=== PATIENT | female | born 1985 | race Caucasian/White ===

== ENCOUNTER 2023-05-31 08:35 | Outpatient (OUT) | payer OTHER, SELFPAY ==
[2023-05-31 09:08] LABS: Estimated Average Glucose 105 mg/dL; Glycohemoglobin A1C 5.3 % (4.5-6.2)
[2023-05-31 09:10] LABS: Basophils Percent Auto 0.6 % (0.2-2.0); Eosinophils Absolute Auto 0.1 10^3/uL (0.0-0.7); Eosinophils Percent Auto 1.1 % (0.9-7.0); Hematocrit 40.3 % (36.0-48.0); Immature Granulocytes Abs Auto 0.02 10^3/uL (0.00-0.03); Immature Granulocytes Pct Auto 0.3 % (0.0-0.5); Lymphocytes Absolute Auto 1.6 10^3/uL (1.2-3.8); Lymphocytes Percent Auto 22.8 % (20.5-60.0); Mean Corpuscular HGB Conc 32.3 g/dL (29.9-35.2); Mean Platelet Volume 10.1 fL (9.5-13.5); Monocytes Absolute Auto 0.5 10^3/uL (0.3-0.8); Monocytes Percent Auto 7.4 % (1.7-12.0); Neutrophils Absolute Auto 4.8 10^3/uL (1.4-6.5); Neutrophils Percent Auto 67.8 % (43.0-75.0); Platelet Count 318 10^3/uL (150-450); Red Blood Count 4.48 10^6/uL (4.20-5.40); Red Cell Distribution Width 12.5 % (11.0-15.0); White Blood Count 7.1 10^3/uL (4.0-11.0)
[2023-05-31 09:31] LABS: Alanine Aminotransferase 24 U/L (14-59); Albumin Level 3.6 g/dL (3.4-5.0); Alkaline Phosphatase 63 U/L (46-116); Anion Gap 13.8; Aspartate Amino Transferase 15 U/L (15-37); BUN Creatinine Ratio 15.9; Bilirubin Total 0.5 mg/dL (0.2-1.0); Calcium 8.6 mg/dL (8.5-10.1); Carbon Dioxide 28.6 mmol/L (21.0-32.0); Chloride 104 mmol/L (98-107); Chol HDL Ratio 3.8; Cholesterol 192 mg/dL (<=200); Estimated GFR (African America >60 (>=60); Estimated GFR (Non-African Ame >60 (>=60); Globulin 3.7 g/dL; Glucose 100 mg/dL (74-106); HDL Cholesterol 50 mg/dL (40-60); LDL Cholesterol Calculated 126.6 mg/dL; Potassium 3.4 mmol/L (3.5-5.1); Sodium 143 mmol/L (136-145); Total Protein 7.3 g/dL (6.4-8.2); Triglycerides 77 mg/dL (<=150); VLDL CHOLESTEROL 15.4 mg/dL
== END 2023-05-31 08:36 | disposition home or self-care (01) ==
LOC: LAB 08:39
PROVIDERS: PCP Nurse Practitioner Family; Visit Provider Family Medicine
DX: Z00.00 Encounter for general adult medical examination without abnormal findings (principal); E78.5 Hyperlipidemia, unspecified; R73.09 Other abnormal glucose; D64.9 Anemia, unspecified
CPT/HCPCS: 36415; 80053; 80061; 83036; 83540; 85025

== ENCOUNTER 2023-08-15 17:22 | Outpatient (OUT) | payer OTHER, SELFPAY ==
--- OUTSIDE RECORDS SUMMARY | 2023-08-15 17:26 | XMS_ITS | CCD ---
Author Name Unknown Address [address] [facility] [address] [place] [address] Organization [facility] Care Team Providers Care Painter Spring Name Role Phone Linnette Ro Unavailable NEFTALI OREILLY Admitting Unavailable AFIA, NEFTALI Attending Unavailable AFIA, NEFTALI Consulting Unavailable OLIVA, RO Primary Care Unavailable GEGE ANDERSEN Consulting Unavailable OLIVA, RO Primary Care Unavailable OLIVA, RO Admitting Unavailable OLIVA, RO Attending Unavailable OLIVA, RO Consulting Unavailable OLIVA, RO Admitting Unavailable OLIVA, RO Attending Unavailable OLIVA, RO Consulting Unavailable OLIVA, RO Primary Care Unavailable Yin Em Unavailable RO BAPTISTE Primary Care Physician [phone] Hari CAMPBELL Attending Unavailable Hari CAMPBELL Referring Unavailable IAN, Hari Smith Attending Unavailable Hari CAMPBELL Admitting Unavailable Hari CAMPBELL Attending Unavailable Hari CAMPBELL Referring Unavailable Medications Current Medications Medication Drug Class(es) Dates Sig (Normalized) Sig (Original) buPROPion hydrochloride 75 mg oral tablet (5 sources) Aminoketone Start: 12-19-2020 take 1 mg by mouth once daily buPROPion 75 mg Tab mg tab(s), Oral, Daily, Refills(s) 0 Start Date: 12/19/20 Status: Ordered buPROPion HCl Ac tive ciprofloxacin 500 mg oral tablet (1 source) Quinolone Antimicrobial Start: 04-25-2023 Cipro 500 mg Tab See Instructions, Take 1 tablet the day before the procedure and 1 tablet after the procedure., # 2 tab(s), Refills(s) 0, Pharmacy: [id number] #[id number], 167, cm, 03/25/23 8:55:00 EDT, Height/Length Dosing, 59, kg, 03/25/23 8:55:00 EDT, Weight Dosing Start Date: 04/25/23 Status: Ordered erythromycin 0.005 mg/mg ophthalmic ointment (1 source) Macrolide, Macrolide Antimicrobial Start: 01-31-2023 Multi Vitamin+ (2 sources) Start: 03-25-2023 Multi Vitamin+ Refill(s) 0 Start Date: 03/25/23 Status: Ordered nitrofurantoin, macrocrystals 25 mg / nitrofurantoin, monohydrate 75 mg oral capsule (2 sources) Nitrofuran Antibacterial Start: 12-08-2021 take 1 capsule by mouth every twelve hours Macrobid 100 MG 1 cap(s) Orally 2 times a day for 5 day(s) November, Active phenazopyridine hydrochloride 200 mg oral tablet (2 sources) Start: 12-08-2021 take 1 tablet by mouth every eight hours Pyridium 200 MG 1 tablet after meals Orally Three times a day for 2 day(s) November, Active Completed/Discontinued Medications Medication Drug Class(es) Dates Sig (Normalized) Sig (Original) amoxicillin 875 mg oral tablet (2 sources) Penicillin-class Antibacterial Start: 12-29-2020 take 1 tablet by mouth every eight hours Amoxicillin 875 MG 1 tablet Orally every 8 hrs for 10 day(s) Dec, Not-Taking chlorhexidine gluconate 1.2 mg/ml mouthwash (3 sources) Start: 12-29-2020 Start: 12-29-2020 take 10 mL by mouth twice daily Peridex 0.12 % gargle 10 ml Mouth/Throat twice daily Dec, Not-Taking Problems Problem Classification Problem Date Documented Da te Episodic/Chronic Anxiety disorders (3 sources) Anxiety disorder, unspecified; Translations: [Anxiety] Onset: 03-24-2022 12-19-2020 Chronic Cardiac dysrhythmias (7 sources) Tachycardia, unspecified; Translations: [Palpitations] Onset: 03-20-2022 Episodic Deficiency and other anemia (1 source) Anemia, unspecified; Translations: [ANEMIA UNSPECIFIED] Onset: 04-06-2022 Episodic Diabetes mellitus without complication (1 source) Other abnormal glucose; Translations: [OTHER ABNORMAL GLUCOSE] Onset: 04-06-2022 Episodic Genitourinary symptoms and ill-defined conditions (3 sources) Urge incontinence; Translations: [Urge incontinence of urine] Onset: 03-25-2023 Chronic Genitourinary symptoms and ill-defined conditions (5 sources) Dysuria; Translations: [Hematuria, unspecified] Onset: 12-08-2021 Resolved: 12-08-2021 Episodic Inflammation; infection of eye (except that caused by tuberculosis or sexually transmitteddisease) (1 source) Hordeolum externum left upper eyelid Episodic Mood disorders (1 source) Major depressive disorder, single episode, unspecified; Translations: [WALTER DEPRESS D/O SINGLE EPIS UNS] Onset: 03-24-2022 Chronic Other aftercare (1 source) Other roasterman (current) drug therapy; Translations: [OTH GLUELINE WORKER CURRENT DRUG THERAPY] Onset: 03-24-2022 Episodic Other ear and sense organ disorders (3 sources) Otitis externa; Translations: [Other otitis externa, bilateral] Chronic Unclassified (2 sources) Asymptomatic microscopic hematuria 03-25-2023 Urinary tract infections (8 sources) Urinary tract infection, site not specified; Translations: [Postinfective urethral stricture of female] Onset: 12-08-2021 Resolved: 12-08-2021 Episodic Results Test Name Value Interpretation Reference Range Facility Coding Queryon 05-27-2023 Coding Query - From: Tete Godfrey To: IAN WILLAMS, Hari Smith; Sent: 05/25/2023 15:39:36 EST ! Subject: Coding Query (Template) CODING COMMUNICATION: ____ Final diagnosis missing please document on Discharge Summary _X__ Procedure information missing: Please document the dilation part of procedure, if done. Thanks ____ Please clarify type of organism associated with infection ____ Please complete ROS or HPI for ER documentation Please feel free to contact the coding department with any questions. Thank you! Dr. Campbell said he did not do a UD on her, it was not needed.pw/LG From: Mikayla Linares To: Tete Godfrey; Sent: 05/27/2023 08:24:25 EST Subject: RE: Coding Query (Template) Caller Name: VITOR TYLER; Caller Number: Mo , Elizabeth [facility] Consent for Procedure/Surger yon 05-24-2023 Consent for Procedure/Surgery [id number] .00TIFF [facility] Consent for Treatmenton 110 Consent for Treatment [id number] .00TIFF [facility] IntraOperative Documentson 1 07-24-2022 IntraOperative Documents [id number] .00TIFF [facility] Main OR Intraoperative Recor don 05-24-2023 Main OR Intraoperative Record IntraOp Document Type FTURO Summary Primary Physician: Hari CAMPBELL MD Finalized Date/Time: 05/24/23 10:49:55 Pt. Name: VITOR TYLER /Sex: 1985 Female Med Rec #: [id number] Physician: Hari CAMPBELL MD Financial #: [id number] Pt. Type: O Room/Bed: / Admit/Disch: 05/24/23 09:38:18 - Institution: Case Times FTURO Entry 1 Patient Times In Room 05/24/23 10:36:00 Out Room 05/24/23 10:49:00 Procedure Times Start 05/24/23 10:42:00 Stop 05/24/23 10:46:00 Anesthesia Times Last Modified By: Olga Han RN 05/24/23 10:49:27 Case Attendance FTURO Entry 1 Entry 2 Entry 3 Case Attendee IAN WILLAMS, Hari Galicia CST, Olga Leo RN Role Performed Surgeon - Primary Scrub - Primary Desktop Publishing Operator - Primary Time In 05/24/23 10:36:00 05/24/23 10:36:00 05/24/23 10:36:00 Time Out 05/24/23 10:49:00 05/24/23 10:49:00 05/24/23 10:49:00 Procedure CYSTOSCOPY LOCAL WITH CYSTOSCOPY LOCAL WITH CYSTOSCOPY LOCAL WITH URETHRAL DILATION(.) URETHRAL DILATION(.) URETHRAL DILATION(.) Comments Last Modified By: Olga Han RN, RN, Olga Ross RN 05/24/23 10:49:29 05/24/23 10:49:29 05/24/23 10:49:29 Surgical Procedures FTURO Entry 1 Procedure Description Procedure CYSTOSCOPY LOCAL WITH Modifiers . URETHRAL DILATION Surgeon Description CYSTOSCOPY LOCAL WITH URETHRAL DILATION Primary Procedure Yes Primary Surgeon Hari CAMPBELL MD Start 05/24/23 10:42:00 Stop 05/24/23 10:46:00 Anesthesia Type Local Surgical Service Urology Wound Class 2 - Clean-Contaminated Last Modified By: Olga Hna RN 05/24/23 10:46:34 General Case Data FTURO Pre-Care Text: Classifies surgical wound, implements aseptic technique, initiates traffic control Entry 1 Case Information OR URO 1 FT Case Level None Wound Class 2 - Clean-Contaminated Specialty Urology Preop Diagnosis URETHERAL STRICTURE, Postop Same As Preop Yes HEMATURIA, RECURRENT UTI'S Postop Diagnosis URETHERAL STRICTURE, Outcomes Met? Yes HEMATURIA, RECURRENT UTI'S Last Modified By: Olga Han RN 05/24/23 10:37:53 Post-Care Text: The patient is free from signs and symptoms of infection EU IntraOp - FTURO Pre-Care Text: Implements protective measures prior to operative or invasive procedure, confirms identity before the operative or invasive procedure, verifies operative procedure, surgical site, and laterality Entry 1 EU Perioperative Protocols Procedure(s) CYSTOSCOPY LOCAL WITH Patient Identity Birthday, ID Band URETHRAL DILATION(.) Verified (select at Check, Patient least 2): Participation Consents / H and P HandP, Surgery/Procedure Operative Site N/A Verified Consent Marking Verified Surgical Site Yes Laterality Verified Yes Verified Procedure Verified Yes Correct Patient Yes Position Verified Availability Equipment, Medication Time Out Hari CAMPBELL MD, Verified (If Participants Olga Galicia CST Applicable) Emely Small RN, Kimberly Y Time Out Complete 05/24/23 10:38:00 Allergies Reviewed? Yes Allergies Reviewed Self/Patient With Body Position Frog Legged Prep Area PERINEUM Prep Agents Betadine Solution Skin. Condition Dry, Warm, Unable to Description UNABLE TO VISUALIZE DUE Visualize TO PATIENT PARTIALLY CLOTHED Additional None Specimens Collected Vitals - EU Blood Pressure 135/88 Pulse 107 bpm Respirations 18 br/min SPO2 99 % EBL 0 IandO - EU Total Intake 0 mL Total Output 0 mL Outcomes Met? Yes Last Modified By: Olga Han RN 05/24/23 10:40:09 Post-Care Text: The patient is free from signs and symptoms of injury caused by extraneous objects Sign Out FTURO Entry 1 Before Patient Leaves OR Nurse verbally Yes Nurse verbally Yes confirms with the confirms with the team the name of team that the procedure(s) instrument, sponge, recorded and needle counts are correct (or N/A) Nurse verbally n/a Nurse verbally Yes confirms with the confirms with the team how the team whether there specimen is labeled are any equipment (including patient problems to be name), if applicable addressed Sign Out Complete 05/24/23 10:46:00 Last Modified By: Olga Han RN 05/24/23 10:46:33 Case Comments Finalized By: Olga Han RN Document Signatures Signed By: Olga Han RN 05/24/23 10:49 Olga Han RN 05/24/23 10:49 Normal [facility] Main OR Preoperative Recordo n 05-24-2023 Main OR Preoperative Record Holding Area Document Type FTURO Summary Primary Physician: Hari CAMPBELL MD Finalized Date/Time: 05/24/23 10:36:18 Pt. Name: VITOR TYLER/Sex: 1985 Female Med Rec #: [id number] Physician: Hari CAMPBELL MD Financial #: [id number] Pt. Type: O Room/Bed: / Admit/Disch: 05/24/23 09:38:18 - Institution: Case Times Holding FTURO Pre-Care Text: Verifies consent for planned procedure, identifies individual values and wishes concerning care, includes family members in perioperative teaching Secures patient's records' belongings, and valuables, maintains patient's dignity and privacy, and maintains patient confidentiality Entry 1 In Holding 05/24/23 09:49:00 Outcomes Met? Yes Last Modified By: Kenia Post LPN 05/24/23 09:49:55 Post-Care Text: The patient participates in decisions affecting his or her perioperative plan of care The patient's right to privacy is maintained Surgery Checklist FTURO Entry 1 Patient Birthday, ID Band Procedure History and Physical, Identification: Check, Patient Verification: Surgical Consent, With Participation Patient NPO after Midnight: n/a Date/Time: 05/24/23 09:50:00 Personal Items: Contact Lenses, Jewelry Personal Items contacts, wedding ring Comment: Limitations: up ad jaja Complaints of Pain: No Skin Integrity Intact, [place], Warm, & Dry Vitals - EU Blood Pressure 135/88 Pulse 107 bpm Respirations 18 br/min SPO2 99 % RN Reviewed Yes Last Modified By: Olga Han RN 05/24/23 10:36:17 General Comments: Temp 36.8 Finalized By: Olga Han RN Document Signatures Signed By: Kenia Post LPN 05/24/23 09:51 Olga Han RN 05/24/23 10:36 Normal [facility] Operative Reporton 3 Operative Report Patient: VITOR TYLER Age: 37 years Sex: Female : 1985 Associated Diagnoses: None Author: Hari CAMPBELL MD Procedure Operative Information Details: Date/ Time: 05/24/2023 10:50:00. Pre-Op Dx: Urgency Incontinence - N39.41, Urgency - R39.15, Hx of UTI's - Z87.440, Incomplete Bladder Emptying - R39.14, Urethral Stricture - Other Post Infective Female - N35.12. Post-Op Dx: Same. Anesthesia Type: Local. Procedure: Local Cystoscopy with Urethral Dilation. Complications: None. Risks/Benefits/Inform ed Consent: Surgical risks, benefits, details of the procedure have been explained to the patient, Full informed consent has been obtained. Intraoperative Information Prepped: Patient is brought back to the endoscopy suite, Patient is placed in modified dorso/lithotomy position, Patient prepped in the usual fashion with Betadine solution, 2% Xylocaine Jelly is placed per Urethra, After waiting several minutes the Cystoscope is introduced. The Urethra is: Tight. The Bladder is: Normal, No bladder tumors, stones or mucosal lesions. No AMIRAH, prolapse or A. V.. The ureteral orifices: Show efflux of clear urine. Devices Implanted: None. Removal: Cystoscope is removed, The patient tolerated it well. Postoperative Information Discharge: Patient is discharged home with antibiotic coverage, Follow up arranged. She will start timed urinations every 3 hours while awake. Follow-up will be in 8 months. 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 Discharge Vitals Temperature (Temporal Artery) 36.3 ?C Heart Rate (Peripheral) 84 Blood Pressure 122/78 Height 167 cm Height 66 in Weight 59 kg Weight 129.8 lb BMI 21.16 What to do next You Need to Schedule the Following Appointments Follow Up with Hari CAMPBELL MD, URL When: Where: [address] [place] [address]- Medications What How Much When Instructions Unchanged buPROPion (buPROPion 75 mg Tab) Every day Contact prescribing physician if questions or concerns Unchanged multivitamin (Multi Vitamin+) Contact prescribing physician if questions or concerns Test Results Urnls Dip Stick Auto w/o Microscopy POC 53407 (03/25/2023) Bilirubin Urine Dipstick - Negative Blood Urine Dipstick - 2+ Moderate Glucose Urine Dipstick - Negative Ketones Urine Dipstick - Negative Leukocytes Urine Dipstick - Negative Nitrite Urine Dipstick - Negative Protein Urine Dipstick - Negative Specific [place] Urine Dipstick - >=1.030 Urine Appearance Urine Dipstick - Clear Urine Color Urine Dipstick - Yellow Urobilinogen Urine Dipstick - Normal 0.2-1 EU/dl pH Urine Dipstick - 5.5 Allergies No Known Allergies Problems Ongoing - Any problem that you are currently receiving treatment for. 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 The urethra is the tube that drains urine from the bladder out of the body. In women, the urethra opens above the vaginal opening. In men, the urethra opens at the tip of the penis. Urethral dilation is usually done to treat narrowing of the urethra (urethral stricture), which can make it difficult to pass urine. Urethral dilation widens the urethra so that you can pass urine normally. Urethral dilation is done through the urethral opening. There are no incisions made during the procedure. Tell a health care provider about: ? Any allergies you have. ? All medicines you are taking, including vitamins, herbs, eye drops, creams, and qctn-mui-zlcwsge medicines. ? Any problems you or family members have had with anesthetic medicines. ? Any blood disorders you have. ? Any surgeries you have had. ? Any medical conditions you have. ? Whether you are or may be . What are the risks? Generally, this is a safe procedure. However, problems may occur, including: ? Bleeding. ? Infection. ? A return of urethral stricture, which requires repeating the dilation procedure. ? Damage to the urethra, which may require reconstructive surgery. ? Allergic reactions to medicines. What happens before the procedure? Medicines Ask your health care provider about: ? Changing or stopping your regular medicines. This is especially important if you are taking diabetes medicines or blood thinners. ? Taking medicines such as aspirin and ibuprofen. These medicines can thin your blood. Do not take these medicines unless your health care provider tells you to take them. ? Taking hpre-ail-ukfevhl medicines, vitamins, herbs, and supplements. General instructions ? Follow instructions from your health care provider about eating or drinking restrictions. ? Plan to have someone take you home from the hospital or clinic. ? If you will be going home right after the procedure, plan to have someone with you for 24 hours. ? Ask your health care provider what steps will be taken to help prevent infection. These may include: ? Washing skin with a germ-killing soap. ? Taking antibiotic medicine. What happens during the procedure? ? An IV may be inserted into one of your veins. ? You will be given one or more of the following medicines: ? A local anesthetic to numb your urethral opening. This will be applied as a gel that will also lubricate the urethral opening. ? A sedative to help you relax. ? A thin tube with a light and camera on the end (cystoscope) will be inserted into your urethra. ? Your urethra will be rinsed (irrigated) with a germ-free (sterile) water solution. ? Narrow parts of your urethra will be stretched ope (more content not included)... Normal [facility] Patient Educationon 03-25-20 Patient Education Urology Urethral Dilation Urethral dilation is a procedure to stretch open (dilate) the urethra. The urethra is the tube that drains urine from the bladder out of the body. In women, the urethra opens above the vaginal opening. In men, the urethra opens at the tip of the penis. Urethral dilation is usually done to treat narrowing of the urethra (urethral stricture), which can make it difficult to pass urine. Urethral dilation widens the urethra so that you can pass urine normally. Urethral dilation is done through the urethral opening. There are no incisions made during the procedure. Tell a health care provider about: ? Any allergies you have. ? All medicines you are taking, including vitamins, herbs, eye drops, creams, and pqod-lya-zrsmuqq medicines. ? Any problems you or family members have had with anesthetic medicines. ? Any blood disorders you have. ? Any surgeries you have had. ? Any medical conditions you have. ? Whether you are or may be . What are the risks? Generally, this is a safe procedure. However, problems may occur, including: ? Bleeding. ? Infection. ? A return of urethral stricture, which requires repeating the dilation procedure. ? Damage to the urethra, which may require reconstructive surgery. ? Allergic reactions to medicines. What happens before the procedure? Medicines Ask your health care provider about: ? Changing or stopping your regular medicines. This is especially important if you are taking diabetes medicines or blood thinners. ? Taking medicines such as aspirin and ibuprofen. These medicines can thin your blood. Do not take these medicines unless your health care provider tells you to take them. ? Taking lzgf-mwi-booybkq medicines, vitamins, herbs, and supplements. General instructions ? Follow instructions from your health care provider about eating or drinking restrictions. ? Plan to have someone take you home from the hospital or clinic. ? If you will be going home right after the procedure, plan to have someone with you for 24 hours. ? Ask your health care provider what steps will be taken to help prevent infection. These may include: ? Washing skin with a germ-killing soap. ? Taking antibiotic medicine. What happens during the procedure? ? An IV may be inserted into one of your veins. ? You will be given one or more of the following medicines: ? A local anesthetic to numb your urethral opening. This will be applied as a gel that will also lubricate the urethral opening. ? A sedative to help you relax. ? A thin tube with a light and camera on the end (cystoscope) will be inserted into your urethra. ? Your urethra will be rinsed (irrigated) with a germ-free (sterile) water solution. ? Narrow parts of your urethra will be stretched open using a dilator tool. Your surgeon will start with a very thin dilator, then use wider dilators as needed. ? A thin tube with an inflatable balloon on the tip may be inserted into your urethra. The balloon may be inflated to help stretch your urethra open. ? Your urethra will be irrigated. The procedure may vary among health care providers and hospitals. What can I expect after the procedure? ? After the procedure, it is common to have: ? Burning pain when urinating. ? Blood in your urine. ? A need to urinate frequently. ? You will be asked to urinate before you leave the hospital or clinic. ? Your urine flow should improve within a few days. Follow these instructions at home: Medicines ? Take sfep-fqj-mzzdfal and prescription medicines only as told by your health care provider. ? If you were prescribed an antibiotic medicine, take it as told by your health care provider. Do not stop taking the antibiotic even if you start to feel better. ? Ask your health care provider if the medicine prescribed to you: ? Requires you to avoid driving or using heavy machinery. ? Can cause constipation. You may need to take these actions to prevent or treat constipation: ? Take rntb-xdv-irdisgg or prescription medicines. ? Eat foods that are high in fiber, such as beans, whole grains, and fresh fruits and vegetables. ? Limit foods that are high in fat and processed sugars, such as fried or sweet foods. General instructions ? Do not drive for 24 hours if you were given a sedative during your procedure. ? If you were sent home with a small, lubricated tube (catheter) to help keep your urethra open, follow your health care provider's instructions about how and when to use it. ? Drink enough fluid to keep your urine pale yellow. ? Return to your normal activities as told by your health care provider. Ask your health care provider what activities are safe for you. ? Keep all follow-up visits as told by your health care provider. This is important. Contact a health care provider if: ? Your urine is cloudy and smells bad. ? You develop new bleeding when you urinate. ? You pa (more content not included)... Normal [facility] Urology Office/Clinic Noteon 03-25-2023 Urology Office/Clinic Note Chief Complaint discuss another cysto HPI Staff Pt is here today to discuss possible Cysto/UD. Last seen in our office 02/09/23 due to Recurrent UTI, urgency & Microscopic Hematuria. S/P Cysto/UD done 02/17/21. Renal US 02/14/21 CMP 04/05/22 She states sometimes it has a strong odor, off and on * She states that when she had the Cysto/UD she did not have any UTI for about 1 year. Dysuria: pain and burning sometimes Incomplete bladder emptying: _denies Hematuria: _ (Moderate ) on U/A today denies visible blood Frequency: 3-4 times a day Urgency: _sometimes Nocturia: _once nightly Stream: _denies hesitation, normal stream Leaking: _sometimes Post void dripping: _denies Wearing pads/ Depends: _pads, change once daily Urge incontinence: _sometimes Stress incontinence: _denies Incontinence without Sensory Awareness: _denies Abdominal pain: _denies Flank pain: denies Sexual complaints: gets UTI up to 2 days after sex History of Present Illness Tests reviewed: Reviewed UA. I have reviewed the previous health record information and history for this patient from Dr. Campbell. I have reviewed and verified the staff HPI to be accurate for this encounter. There have been no associated fever, chills, flank pain, or blood in the urine. Denies any urinary infections since last encounter. Review of Systems PHQ Score Initial Depression Screen Score: 0 ROS - Provider Constitutional: denies weight loss, denies hot flashes. Eyes: denies eye problems. Gastrointestinal: denies nausea, denies vomiting. Cardiovascular: denies chest pain or angina. Integumentary: no dryness Musculoskeletal: denies musculoskeletal symptoms. ENMT: denies otolaryngeal symptoms. Respiratory: no shortness of breath. Heme/Lymph: denies easy bleeding tendency, denies easy bruising tendency. Psychiatric: no confusion, no anxiety. Genitourinary: See HPI. Physical Exam Vitals & Measurements T: 36.3 ?C(Temporal Artery) HR: 84(Peripheral) BP: 122/78 HT: 66 in HT: 167 cm WT: 59 kg WT: 129.8 lb BMI: 21.16 General Appearance: alert , no acute distress, well nourished, well developed female. Genitourinary: bladder nonpalpable, no flank pain. Assessment/Plan 1. Recurrent UTI (N39.0: Urinary tract infection, site not specified) Renal US 02/14/21 neg exam Patient states after she was dilated in February 2021 she did not have any infections for at least 1 year. Last infection was a few months ago. Patient states she was treated with antibiotic therapy. Intermittent foul smelling urine. UA today neg for infection. 2. Urge incontinence (N39.41: Urge incontinence) Patient is having to wear pads. Usually changes once per day. Patient does not believe she was experiencing urgency at the time of last cysto/UD. We discussed medication management and PFPT if cysto/UD does not improve urination. 3. Asymptomatic microscopic hematuria (R31.21: Asymptomatic microscopic hematuria) UA today MODERATE. Denies gross hematuria. Not currently on menstrual cycle. Neg cysto and DENILSON 2020. Non-smoker. 4. Postinfective urethral stricture in female (N35.12: Postinfective urethral stricture, not elsewhere classified, female) S/p cysto/UD 02/17/21. Feels dilation needs repeated. Strong stream and feels she is emptying. Will schedule Cysto with UD. The procedure risks, benefits, details, and treatment alternatives have been discussed with the patient. These include bleeding, infection, recurrent scar in over 50%, need for repeat dilation or other procedures, no symptom relief with dilation, among others. Full informed consent has been obtained. Will order Local anesthesia. Abx sent. Follow-up With When Contact Information Hari CAMPBELL MD, URL [address] [place], [place] [id number]- Additional Instructions: Schedule cysto/UD Patient Education Urethral Dilation I, Cindi Sparks, personally scribed for Dr. Campbell on 03/25/2023 09:39:21. . Documentation recorded by the scribeCindi, accurately reflects the services(s) I performed and decisions made by me. Authenticated by Dr. Campbell on 03/25/2023 09:42:48. Problem List/Past Medical History Ongoing Anxiety Asymptomatic microscopic hematuria Postinfective urethral stricture in female Recurrent UTI Urge incontinence Historical No qualifying data Procedure/Surgical History Cystourethroscopy with dilation of urethral stricture (02/17/2021). Medications buPROPion 75 mg Tab, Oral, Daily Multi Vitamin+ Allergies No Known Allergies Social History Alcohol - Denies Alcohol Use, 02/09/2021 Tobacco Never (less than 100 in lifetime) Tobacco Use:. Never Smokeless Tobacco Use:., 03/25/2023 Family History Diabetes: Other Relationship. Hypertension: Other Relationship. Thyroid cancer: Other Relationship. Immunizations Vaccine Date Status diphtheria/pertussis, acel/tetanus adult 08/07/19 (more content not included)... Normal [facility] Comment on above: Result Comment: Elec tronically Signed By: Hari CAMPBELL MD\.br\Date and Time Signed: 03/25/23 09:42 EDT\.br\Electronically Co-Signed By: Cindi Sparks\.br\Date and Time Co-Signed: 03/25/23 09:40 EDT INSULINon 04-06-2022 Insulin 12.3 uIU/mL Normal 2.6-24.9 [facility] Comment on above: Performed By: #### P TT, PT #### [facility] [address] [place] [address] Dr. Dayana Coto T4, T3U, FTI LABCORPon 04-06 Free Thyroxine Index 2.4 Normal 1.2-4.9 [facility] Comment on above: Performed By: #### P TT, PT #### [facility] [address] [place] [address] Dr. Dayana Coto T3 Uptake 26 % Normal 24-39 [facility] Comment on above: Performed By: #### P TT, PT #### [facility] [address] [place] [address] Dr. Dayana Coto T4 [Mass/Vol] 9.2 ug/dL Normal 4.5-12.0 [facility] Comment on above: Performed By: #### P TT, PT #### [facility] [address] [place] [address] Dr. Dayana Coto CBC AUTO DIFFon 04-05-2022 BASO # 0.0 103/ul Normal 0.0-0.1 [facility] Comment on above: Performed By: #### C BC #### [facility] [address] [place] [address] Dr. Dayana Coto Basophils/100 WBC (Bld) 0.5 % Normal 0.2-2.0 [facility] Comment on above: Performed By: #### C BC #### [facility] [address] [place] [address] Dr. Dayana Coto EO # 0.1 103/ul Normal 0.0-0.7 [facility] Comment on above: Performed By: #### C BC #### [facility] [address] [place] [address] Dr. Dayana Coto Eosinophils/100 WBC (Bld) 1.2 % Normal 0.9-7.0 [facility] Comment on above: Performed By: #### C BC #### [facility] [address] [place] [address] Dr. Dayana Coto Erythrocyte distribution width (RBC) [Ratio] 13.3 % Normal 11.0-15.0 [facility] Comment on above: Performed By: #### C BC #### [facility] [address] [address] [address] Dayana Coto Hematocrit (Bld) [Volume fraction] 36.2 % Normal 36.0-48.0 [facility] Comment on above: Performed By: #### C BC #### [facility] [address] [place] [address] Dr. Dayana Coto Hemoglobin (Bld) [Mass/Vol] 11.5 g/dL Critically low 12.0-16.0 [facility] Comment on above: Performed By: #### C BC #### [facility] [address] [place] [address] Dr. Dayana Coto IG # 0.02 10e3/ul Normal 0.00-0.03 [facility] Comment on above: Performed By: #### C BC #### [facility] [address] [place] [address] Dr. Dayana Coto IG % 0.3 % Normal 0.0-0.5 [facility] Comment on above: Performed By: #### C BC #### [facility] [address] [place] [address] Dr. Dayana Coto LYMPH # 1.5 103/ul Normal 1.2-3.8 [facility] Comment on above: Performed By: #### C BC #### [facility] [address] [place] [address] Dr. Dayana Coot Lymphocytes/100 WBC (Bld) 25.1 % Normal 20.5-60.0 [facility] Comment on above: Performed By: #### C BC #### [facility] [address] [place] [address] Dr. Dayana Coto MANUAL DIFF REQ NO Normal [facility] Comment on above: Performed By: #### C BC #### [facility] [address] [place] [address] Dr. Dayana Coto MCH (RBC) [Entitic mass] 27.3 pg Normal 26.7-34.0 [facility] Comment on above: Performed By: #### C BC #### [facility] [address] [address] [address] Dayana Coto MCHC (RBC) [Mass/Vol] 31.8 g/dL Normal 29.9-35.2 [facility] Comment on above: Performed By: #### C BC #### [facility] [address] [address] [address] Dayana Coto MCV (RBC) [Entitic vol] 86.0 fL Normal 81.0-99.0 [facility] Comment on above: Performed By: #### C BC #### [facility] [address] [place] [address] Dr. Dayana Coto MONO # 0.5 103/ul Normal 0.3-0.8 [facility] Comment on above: Performed By: #### C BC #### [facility] [address] [place] [address] Dr. Dayana Coto Monocytes/100 WBC (Bld) 8.3 % Normal 1.7-12.0 [facility] Comment on above: Performed By: #### C BC #### [facility] [address] [place] [address] Dr. Dayana Coto NEUT # 3.8 103/ul Normal 1.4-6.5 [facility] Comment on above: Performed By: #### C BC #### [facility] [address] [place] [address] Dr. Dayana Coto Neutrophils/100 WBC (Bld) 64.6 % Normal 43.0-75.0 [facility] Comment on above: Performed By: #### C BC #### [facility] [address] [place] [address] Dr. Dayana Coto Platelet mean volume (Bld) [Entitic vol] 10.4 fL Normal 9.5-13.5 [facility] Comment on above: Performed By: #### C BC #### [facility] [address] [place] [address] Dr. Dayana Coto PLT 303 103/ul Normal 150-450 [facility] Comment on above: Performed By: #### C BC #### [facility] [address] [address] [address] Dayana Coto RBC 4.21 106/ul Normal 4.20-5.40 [facility] Comment on above: Performed By: #### C BC #### [facility] [address] [address] [address] Dayana Coto WBC 5.9 103/ul Normal 4.0-11.0 [facility] Comment on above: Performed By: #### C BC #### [facility] [address] [address] [address] Dayana Coto GLYCOHEMOGLOBIN A1Con 2021 ADA RECOMMENDATION SEE BELOW Normal [facility] Comment on above: Result Comment: ADA RECOMMENDED LIMIT 4.0 - 6.0 ADA THERAPEUTIC TARGET < 7.0 ACTION SUGGESTED > 7.0 Performed By: #### A 1C #### [facility] [address] [place] [address] Dr. Dayana Coto Glucose [Mass/Vol] 105 mg/dL Normal [facility] Comment on above: Performed By: #### A 1C #### [facility] [address] [place] [address] Dr. Dayana Coto HbA1c (Bld) [Mass fraction] 5.3 % Normal 4.5-6.2 [facility] Comment on above: Performed By: #### A 1C #### [facility] [address] [place] [address] Dr. Dayana Coto IRONon 04-05-2022 Iron [Mass/Vol] 54.0 ug/dL Normal 50.0-170.0 [facility] Comment on above: Performed By: #### P TT, PT #### [facility] [address] [place] [address] Dr. Dayana Coto LIPID PROFILEon 04-05-2022 CHOL-HDL RATIO NORM SEE BELOW Normal [facility] Comment on above: Result Comment: 3.3 - 4.4 LOW RISK 4.4 - 7.1 AVERAGE RISK 7.1 - 11.0 MODERATE RISK >11.0 HIGH RISK Performed By: #### C MP, LIPID, TSH #### [facility] [address] [address] [address] Dayana Coto Cholesterol [Mass/Vol] 140 mg/dL Normal <=200 [facility] Comment on above: Performed By: #### C MP, LIPID, TSH #### [facility] [address] [address] [address] Dayana Coto Cholesterol in HDL [Mass/Vol] 33 mg/dL Critically low 40-60 [facility] Comment on above: Performed By: #### C MP, LIPID, TSH #### [facility] [address] [address] [address] Dayana Coto Cholesterol in LDL [Mass/Vol] 88.2 mg/dL Normal [facility] Comment on above: Performed By: #### C MP, LIPID, TSH #### [facility] [address] [address] [address] Dayana Coto Cholesterol.total/C holesterol in HDL [Mass ratio] 4.2 {ratio} Normal [facility] Comment on above: Performed By: #### C MP, LIPID, TSH #### [facility] [address] [address] [address] Dayana Coto HDL NORMAL > or = 60 mg/dl - LO W CARDIOVASCULAR RISK <40 mg/dl - HIGH CARDIOVASCULAR RISK Normal [facility] Comment on above: Performed By: #### C MP, LIPID, TSH #### [facility] [address] [address] [address] Dayana Coto LDL CALC NORMAL SEE BELOW Normal [facility] Comment on above: Result Comment: <100 mg/dl OPTIMAL 100 - 129 mg/dl NEAR OR ABOVE OPTIMAL 130 - 159 mg/dl BORDERLINE HIGH 160 - 189 mg/dl HIGH >190 mg/dl VERY HIGH Performed By: #### C MP, LIPID, TSH #### [facility] [address] [address] [address] Dayana Coto Triglyceride [Mass/Vol] 94 mg/dL Normal <=150 [facility] Comment on above: Performed By: #### C MP, LIPID, TSH #### [facility] [address] [address] [address] Dayana Coto VLDL CALC 18.8 mg/dL Normal [facility] Comment on above: Performed By: #### C MP, LIPID, TSH #### [facility] [address] [address] [address] Dayana Coto PROF 14(COMP METB)on 022 Albumin [Mass/Vol] 3.8 g/dL Normal 3.4-5.0 [facility] Comment on above: Performed By: #### C MP, LIPID, TSH #### [facility] [address] [address] [address] Dayana Coto Albumin/Globulin [Mass ratio] 1.1 {ratio} Normal [facility] Comment on above: Performed By: #### C MP, LIPID, TSH #### [facility] [address] [address] [address] Dayana Coto ALP [Catalytic activity/Vol] 52 U/L Normal 46-116 [facility] Comment on above: Performed By: #### C MP, LIPID, TSH #### [facility] [address] [place] [address] Dr. Dayana Coto ALT [Catalytic activity/Vol] 38 U/L Normal 14-59 [facility] Comment on above: Performed By: #### C MP, LIPID, TSH #### [facility] [address] [place] [address] Dr. Dayana Coto Anion gap [Moles/Vol] 10.3 mmol/L Normal [facility] Comment on above: Performed By: #### C MP, LIPID, TSH #### [facility] [address] [address] [address] Dayana Coto AST [Catalytic activity/Vol] 13 U/L Critically low 15-37 [facility] Comment on above: Performed By: #### C MP, LIPID, TSH #### [facility] [address] [place] [address] Dr. Dayana Coto Bilirubin [Mass/Vol] 0.3 mg/dL Normal 0.2-1.0 [facility] Comment on above: Performed By: #### C MP, LIPID, TSH #### [facility] [address] [place] [address] Dr. Dayana Coto Calcium [Mass/Vol] 8.8 mg/dL Normal 8.5-10.1 [facility] Comment on above: Performed By: #### C MP, LIPID, TSH #### [facility] [address] [address] [address] Dayana Coto Chloride [Moles/Vol] 106 mmol/L Normal 98-107 [facility] Comment on above: Performed By: #### C MP, LIPID, TSH #### [facility] [address] [place] [address] Dr. Dayana Coto CO2 [Moles/Vol] 28.2 mmol/L Normal 21.0-32.0 [facility] Comment on above: Performed By: #### C MP, LIPID, TSH #### [facility] [address] [place] [address] Dr. Dayana Coto Creatinine [Mass/Vol] 0.72 mg/dL Normal 0.55-1.02 [facility] Comment on above: Performed By: #### C MP, LIPID, TSH #### [facility] [address] [place] [address] Dr. Dayana Coto EGFR-AF BRITISH >60 Normal >=60 [facility] Comment on above: Performed By: #### C MP, LIPID, TSH #### [facility] [address] [place] [address] Dr. Dayana Coto EGFR-NON AF BRITISH >60 Normal >=60 [facility] Comment on above: Performed By: #### C MP, LIPID, TSH #### [facility] [address] [place] [address] Dr. Dayana Coto Globulin (S) [Mass/Vol] 3.5 g/dL Normal [facility] Comment on above: Performed By: #### C MP, LIPID, TSH #### [facility] [address] [place] [address] Dr. Dayana Coto Glucose [Mass/Vol] 106 mg/dL Normal 74-106 [facility] Comment on above: Performed By: #### C MP, LIPID, TSH #### [facility] [address] [address] [address] Dayana Coto Potassium [Moles/Vol] 3.5 mmol/L Normal 3.5-5.1 [facility] Comment on above: Performed By: #### C MP, LIPID, TSH #### [facility] [address] [place] [address] Dr. Dayana Coto Protein [Mass/Vol] 7.3 g/dL Normal 6.4-8.2 [facility] Comment on above: Performed By: #### C MP, LIPID, TSH #### [facility] [address] [address] [address] Dayana Coto Sodium [Moles/Vol] 141 mmol/L Normal 136-145 [facility] Comment on above: Performed By: #### C MP, LIPID, TSH #### [facility] [address] [place] [address] Dr. Dayana Coto Urea nitrogen [Mass/Vol] 11.0 mg/dL Normal 7.0-18.0 [facility] Comment on above: Performed By: #### C MP, LIPID, TSH #### [facility] [address] [place] [address] Dr. Dayana Coto Urea nitrogen/Creatinine [Mass ratio] 15.3 mg/mg Normal [facility] Comment on above: Performed By: #### C MP, LIPID, TSH #### [facility] [address] [place] [address] Dr. Dayana Coto TSHon 04-05-2022 TSH 1.951 uIU/mL Normal 0.358-3.740 [facility] Comment on above: Performed By: #### C MP, LIPID, TSH #### [facility] [address] [place] [address] Dr. Dayana Coto CARDIAC MONICA ADMITon 022 CK [Catalytic activity/Vol] 41 U/L Normal 26-192 [facility] Comment on above: Performed By: #### P TT, PT #### [facility] [address] [place] [address] Dr. Dayana Coto CK.MB [Mass/Vol] 0.40 ng/mL Normal <=3.60 [facility] Comment on above: Performed By: #### P TT, PT #### [facility] [address] [place] [address] Dr. Dayana Coto HSTROP <4.0 Normal 4.0-51.3 [facility] Comment on above: Result Comment: CUT- OFF POINTS HAVE BEEN ESTABLISHED BASED ON THE FOURTH UNIVERSAL DEFINITIONS OF MYOCARDIAL INFARCTION. THE UPPER REFERENCE LIMIT (URL) OF TROPONIN, DEFINED THE 99TH PERCENTILE OF cTnI DISTRIBUTION IN A REFERENCE POPULATION, HAS BEEN CONFIRMED THE DECISION THRESHOLD FOR PR DIAGNOSIS. Performed By: #### P TT, PT #### [facility] [address] [place] [address] Dr. Dayana Coto HECTOR 15 ng/mL Normal 9-82 [facility] Comment on above: Performed By: #### P TT, PT #### [facility] [address] [place] [address] Dr. Dayana Coto CBC AUTO DIFFon 03-20-2022 BASO # 0.0 103/ul Normal 0.0-0.1 [facility] Comment on above: Performed By: #### C BC #### [facility] [address] [place] [address] Dr. Dayana Coto Basophils/100 WBC (Bld) 0.4 % Normal 0.2-2.0 [facility] Comment on above: Performed By: #### C BC #### [facility] [address] [place] [address] Dr. Dayana Coto EO # 0.0 103/ul Normal 0.0-0.7 [facility] Comment on above: Performed By: #### C BC #### [facility] [address] [place] [address] Dr. Dayana Coto Eosinophils/100 WBC (Bld) 0.0 % Critically low 0.9-7.0 [facility] Comment on above: Performed By: #### C BC #### [facility] [address] [place] [address] Dr. Dayana Coto Erythrocyte distribution width (RBC) [Ratio] 13.8 % Normal 11.0-15.0 [facility] Comment on above: Performed By: #### C BC #### [facility] [address] [place] [address] Dr. Dayana Coto Hematocrit (Bld) [Volume fraction] 39.5 % Normal 36.0-48.0 [facility] Comment on above: Performed By: #### C BC #### [facility] [address] [place] [address] Dr. Dayana Coto Hemoglobin (Bld) [Mass/Vol] 12.8 g/dL Normal 12.0-16.0 [facility] Comment on above: Performed By: #### C BC #### [facility] [address] [place] [address] Dr. Dayana Coto IG # 0.02 10e3/ul Normal 0.00-0.03 [facility] Comment on above: Performed By: #### C BC #### [facility] [address] [place] [address] Dr. Dayana Coto IG % 0.3 % Normal 0.0-0.5 [facility] Comment on above: Performed By: #### C BC #### [facility] [address] [place] [address] Dr. Dayana Coto LYMPH # 1.4 103/ul Normal 1.2-3.8 [facility] Comment on above: Performed By: #### C BC #### [facility] [address] [place] [address] Dr. Dayana Coto Lymphocytes/100 WBC (Bld) 18.0 % Critically low 20.5-60.0 [facility] Comment on above: Performed By: #### C BC #### [facility] [address] [place] [address] Dr. Dayana Coto MANUAL DIFF REQ NO Normal [facility] Comment on above: Performed By: #### C BC #### [facility] [address] [place] [address] Dr. Dayana Coto MCH (RBC) [Entitic mass] 27.5 pg Normal 26.7-34.0 [facility] Comment on above: Performed By: #### C BC #### [facility] [address] [address] [address] Dayana Coto MCHC (RBC) [Mass/Vol] 32.4 g/dL Normal 29.9-35.2 [facility] Comment on above: Performed By: #### C BC #### [facility] [address] [place] [address] Dr. Dayana Coto MCV (RBC) [Entitic vol] 84.9 fL Normal 81.0-99.0 [facility] Comment on above: Performed By: #### C BC #### [facility] [address] [place] [address] Dr. Dayana Coto MONO # 0.3 103/ul Normal 0.3-0.8 [facility] Comment on above: Performed By: #### C BC #### [facility] [address] [place] [address] Dr. Dayana Coto Monocytes/100 WBC (Bld) 4.5 % Normal 1.7-12.0 [facility] Comment on above: Performed By: #### C BC #### [facility] [address] [place] [address] Dr. Dayana Coto NEUT # 5.8 103/ul Normal 1.4-6.5 [facility] Comment on above: Performed By: #### C BC #### [facility] [address] [place] [address] Dr. Dayana Coto Neutrophils/100 WBC (Bld) 76.8 % Critically high 43.0-75.0 [facility] Comment on above: Performed By: #### C BC #### [facility] [address] [place] [address] Dr. Dayana Coto Platelet mean volume (Bld) [Entitic vol] 10.3 fL Normal 9.5-13.5 [facility] Comment on above: Performed By: #### C BC #### [facility] [address] [place] [address] Dr. Dayana Coto PLT 353 103/ul Normal 150-450 [facility] Comment on above: Performed By: #### C BC #### [facility] [address] [place] [address] Dr. Dayana Coto RBC 4.65 106/ul Normal 4.20-5.40 [facility] Comment on above: Performed By: #### C BC #### [facility] [address] [place] [address] Dr. Dayana Coto WBC 7.5 103/ul Normal 4.0-11.0 [facility] Comment on above: Performed By: #### C BC #### [facility] [address] [place] [address] Dr. Dayana Coto DRUG SCREEN RAPID (URINE)on 03-20-2022 AMP Negative Normal NEGATIVE [facility] Comment on above: Performed By: #### P TT, PT #### [facility] [address] [place] [address] Dr. Dayana Coto BAR Negative Normal NEGATIVE [facility] Comment on above: Performed By: #### P TT, PT #### [facility] [address] [place] [address] Dr. Dayana Coto BUP Negative Normal NEGATIVE [facility] Comment on above: Performed By: #### P TT, PT #### [facility] Laboratory [address] [place] [address] Dr. Dayana Coto BZO Positive Abnormal NEGATIVE [facility] Comment on above: Performed By: #### P TT, PT #### [facility] [address] [place] [address] Dr. Dayana Coto CINDI Negative Normal NEGATIVE [facility] Comment on above: Performed By: #### P TT, PT #### [facility] [address] [place] [address] Dr. Dayana Coto CUT-OFFS SEE BELOW Normal [facility] Comment on above: Result Comment: AMP (Amphetamine): 500ng/mL, BAR (Barbituates): 200 ng/mL, BZO (Benzodiazepines): 150 ng/mL, BUP (Buprenorphine): 10 ng/mL, CINDI (Cocaine): 150 ng/mL, mAMP (Methamphetamine): 500 ng/mL, MTD (Methadone): 200 ng/mL, OPI (Opiates): 100 ng/mL, OXY (Oxycodone): 100 ng/mL, PCP (Phencyclidine): 25 ng/mL, PPX (Propoxyphene): 300 ng/mL, THC (Cannabinoids): 50 ng/mL, TCA (Trycyclic Antidepressants): 300 ng/mL Performed By: #### P TT, PT #### [facility] [address] [place] [address] Dr. Dayana Coto DRUG CUT HEADER DRUG CLASS TEST SYSTEM CUT-OFF CONCENTRATIONS ARE FOLLOWS: Normal [facility] Comment on above: Performed By: #### P TT, PT #### [facility] [address] [place] [address] Dr. Dayana Coto mAMP Negative Normal NEGATIVE [facility] Comment on above: Performed By: #### P TT, PT #### [facility] [address] [place] [address] Dr. Dayana Coto MTD Negative Normal NEGATIVE [facility] Comment on above: Performed By: #### P TT, PT #### [facility] [address] [place] [address] Dr. Dayana Coto OPI Negative Normal NEGATIVE [facility] Comment on above: Performed By: #### P TT, PT #### [facility] [address] [place] [address] Dr. Dayana Coto OXY Negative Normal NEGATIVE [facility] Comment on above: Performed By: #### P TT, PT #### [facility] [address] [place] [address] Dr. Dayana Coto PCP Negative Normal NEGATIVE [facility] Comment on above: Performed By: #### P TT, PT #### [facility] [address] [place] [address] Dr. Dayana Coto PPX Negative Normal NEGATIVE [facility] Comment on above: Performed By: #### P TT, PT #### [facility] [address] [place] [address] Dr. Dayana Coto TCA Negative Normal NEGATIVE [facility] Comment on above: Performed By: #### P TT, PT #### [facility] [address] [place] [address] Dr. Dayana Coto THC Negative Normal NEGATIVE [facility] Comment on above: Performed By: #### P TT, PT #### [facility] [address] [place] [address] Dr. Dayana Coto ER URINE PROFILEon 2 Bilirubin Ql (U) Negative Normal NEGATIVE [facility] Comment on above: Performed By: #### P TT, PT #### [facility] [address] [place] [address] Dr. Dayana Coto Clarity (U) CLEAR Normal CLEAR [facility] Comment on above: Performed By: #### P TT, PT #### [facility] [address] [place] [address] Dr. Dayana Coto Color (U) LT. YELLOW Normal YELLOW [facility] Comment on above: Performed By: #### P TT, PT #### [facility] [address] [place] [address] Dr. Dayana WELLERPeter A micrscopic examination will be performed if indicated. Normal [facility] Comment on above: Performed By: #### P TT, PT #### [facility] [address] [place] [address] Dr. Dayana Coto Glucose Ql (U) Negative Normal NEGATIVE [facility] Comment on above: Performed By: #### P TT, PT #### [facility] [address] [place] [address] Dr. Dayana Coto Hemoglobin Ql (U) MODERATE Abnormal NEGATIVE [facility] Comment on above: Performed By: #### P TT, PT #### [facility] [address] [place] [address] Dr. Dayana Coto Ketones Ql (U) Negative Normal NEGATIVE [facility] Comment on above: Performed By: #### P TT, PT #### [facility] [address] [place] [address] Dr. Dayana Coto LEUKOCYTES Negative Normal NEGATIVE [facility] Comment on above: Performed By: #### P TT, PT #### [facility] [address] [place] [address] Dr. Dayana Coto Nitrite Ql (U) Negative Normal NEGATIVE [facility] Comment on above: Performed By: #### P TT, PT #### [facility] [address] [place] [address] Dr. Dayana Coto pH (U) 6.0 [pH] Normal 5-9 [facility] Comment on above: Performed By: #### P TT, PT #### [facility] [address] [address] [address] Dayana Coto Protein (U) [Mass/Vol] 30 mg/dL Abnormal NEGATIVE/ TRACE [facility] Comment on above: Performed By: #### P TT, PT #### [facility] [address] [place] [address] Dr. Dayana Coto SPEC GRAVITY 1.015 Normal 1.005-<=1.025 [facility] Comment on above: Performed By: #### P TT, PT #### [facility] [address] [place] [address] Dr. Dayana Coto UR MICRO IND INDICATED Normal [facility] Comment on above: Performed By: #### P TT, PT #### [facility] [address] [place] [address] Dr. Dayana Coto Urobilinogen Qn (U) 0.2 {Frances'U}/dL Normal 0.2 - 1. 0 [facility] Comment on above: Performed By: #### P TT, PT #### [facility] [address] [place] [address] Dr. Dayana Coto URon 03-20-2022 , QUAL Negative Normal NEGATIVE [facility] Comment on above: Performed By: #### P TT, PT #### [facility] [address] [place] [address] Dr. Dayana Coto PROF 14(COMP METB)on 022 Albumin [Mass/Vol] 4.2 g/dL Normal 3.4-5.0 [facility] Comment on above: Performed By: #### C MP, CMADM #### [facility] [address] [place] [address] Dr. Dayana Coto Albumin/Globulin [Mass ratio] 1.1 {ratio} Normal [facility] Comment on above: Performed By: #### C MP, CMADM #### [facility] [address] [place] [address] Dr. Dayana Coto ALP [Catalytic activity/Vol] 68 U/L Normal 46-116 [facility] Comment on above: Performed By: #### C MP, CMADM #### [facility] [address] [address] [address] Dayana Coto ALT [Catalytic activity/Vol] 18 U/L Normal 14-59 [facility] Comment on above: Performed By: #### C MP, CMADM #### [facility] [address] [place] [address] Dr. Dayana Coto Anion gap [Moles/Vol] 16.6 mmol/L Normal [facility] Comment on above: Performed By: #### C SAUMYA, CMADM #### [facility] [address] [place] [address] Dr. Dayana Coto AST [Catalytic activity/Vol] 12 U/L Critically low 15-37 [facility] Comment on above: Performed By: #### C SAUMYA, CMADM #### [facility] [address] [place] [address] Dr. Dayana Coto Bilirubin [Mass/Vol] 0.2 mg/dL Normal 0.2-1.0 [facility] Comment on above: Performed By: #### C SAUMYA, CMADM #### [facility] [address] [place] [address] Dr. Dayana Coto Calcium [Mass/Vol] 9.4 mg/dL Normal 8.5-10.1 [facility] Comment on above: Performed By: #### C SAUMYA, CMADM #### [facility] [address] [place] [address] Dr. Dayana Coto Chloride [Moles/Vol] 103 mmol/L Normal 98-107 [facility] Comment on above: Performed By: #### C MP, CMADM #### [facility] [address] [place] [address] Dr. Dayana Coto CO2 [Moles/Vol] 25.6 mmol/L Normal 21.0-32.0 [facility] Comment on above: Performed By: #### C MP, CMADM #### [facility] [address] [place] [address] Dr. Dayana Coto Creatinine [Mass/Vol] 0.69 mg/dL Normal 0.55-1.02 [facility] Comment on above: Performed By: #### C MP, CMADM #### [facility] [address] [address] [address] Dayana Coto EGFR-AF BRITISH >60 Normal >=60 [facility] Comment on above: Performed By: #### C SAUMYA, CMADM #### [facility] [address] [place] [address] Dr. Dayana Coto EGFR-NON AF BRITISH >60 Normal >=60 [facility] Comment on above: Performed By: #### C SAUMYA, CMADM #### [facility] [address] [place] [address] Dr. Dayana Coto Globulin (S) [Mass/Vol] 3.8 g/dL Normal [facility] Comment on above: Performed By: #### C SAUMYA, CMADM #### [facility] [address] [place] [address] Dr. Dayana Coto Glucose [Mass/Vol] 126 mg/dL Critically high 74-106 [facility] Comment on above: Performed By: #### C SAUMYA, CMADM #### [facility] [address] [address] [address] Dayana Coto Potassium [Moles/Vol] 3.2 mmol/L Critically low 3.5-5.1 [facility] Comment on above: Performed By: #### C SAUMYA, CMADM #### [facility] [address] [place] [address] Dr. Dayana Coto Protein [Mass/Vol] 8.0 g/dL Normal 6.4-8.2 [facility] Comment on above: Performed By: #### C SAUMYA, CMADM #### [facility] [address] [place] [address] Dr. Dayana Coto Sodium [Moles/Vol] 142 mmol/L Normal 136-145 [facility] Comment on above: Performed By: #### C SAUMYA, ABUNDIO #### [facility] [address] [place] [address] Dr. Dayana Coto Urea nitrogen [Mass/Vol] 10.0 mg/dL Normal 7.0-18.0 [facility] Comment on above: Performed By: #### C ABUNDIO KERNS #### [facility] [address] [place] [address] Dr. Dayana Coto Urea nitrogen/Creatinine [Mass ratio] 14.5 mg/mg Normal [facility] Comment on above: Performed By: #### C ABUNDIO KERNS #### [facility] [address] [place] [address] Dr. Dayana Coto PROTIMEon 03-20-2022 INR Coag (PPP) [Relative time] 0.99 {INR} Normal [facility] Comment on above: Performed By: #### P TT, PT #### [facility] [address] [place] [address] Dr. Dayana Coto INR GUIDELINES SEE BELOW Normal [facility] Comment on above: Result Comment: JAVIER RED INR: 2.0 - 3.0 CONDITIONS NOT LISTED BELOW 2.5 - 3.5 FOR PROSTHETIC HEART VALVE REPLACEMENT 2.5 - 3.5 RECURRENT THROMBOSIS Performed By: #### P TT, PT #### [facility] [address] [place] [address] Dr. Dayana Coto PT Coag (PPP) [Time] 10.7 s Normal 9.0-11.6 [facility] Comment on above: Performed By: #### P TT, PT #### [facility] [address] [place] [address] Dr. Dayana Coto PTTon 03-20-2022 aPTT Coag (Bld) [Time] 26.8 s Normal 22.3-36.2 [facility] Comment on above: Performed By: #### P TT, PT #### [facility] [address] [place] [address] Dr. Dayana Coto TSHon 03-20-2022 TSH 1.607 uIU/mL Normal 0.358-3.740 [facility] Comment on above: Performed By: #### P TT, PT #### [facility] [address] [place] [address] Dr. Dayana Coto URINE MICROSCOPIC ONLYon BACTERIA TRACE Abnormal NONE SEEN [facility] Comment on above: Performed By: #### P TT, PT #### [facility] [address] [place] [address] Dr. Dayana Coto Bacteria identified Cx Nom (U) NOT INDICATED Normal [facility] Comment on above: Performed By: #### P TT, PT #### [facility] [address] [place] [address] Dr. Dayana Coto CAST NONE SEEN Normal NONE SEEN [facility] Comment on above: Performed By: #### P TT, PT #### [facility] [address] [place] [address] Dr. Dayana Coto Crystals LM Nom (Urine sed) NONE SEEN Normal NONE SEEN [facility] Comment on above: Performed By: #### P TT, PT #### [facility] [address] [place] [address] Dr. Dayana Coto Epithelial cells LM Ql (Urine sed) FEW Abnormal NONE SEEN /RARE [facility] Comment on above: Performed By: #### P TT, PT #### [facility] [address] [place] [address] Dr. Dayana Coto MUCOUS MODERATE Abnormal NONE SEEN [facility] Comment on above: Performed By: #### P TT, PT #### [facility] [address] [place] [address] Dr. Dayana Coto RBC 5-10 Abnormal 0-2 [facility] Comment on above: Performed By: #### P TT, PT #### [facility] [address] [place] [address] Dr. Dayana Coto WBC NONE SEEN Normal NONE SEEN [facility] Comment on above: Performed By: #### P TT, PT #### [facility] [address] [place] [address] Dr. Dayana Coto XR CHEST 1 Von 03-20-2022 XR CHEST 1 V EXAM: XR CHEST 1 V INDICATION: CHEST PAIN, UNSPECIFIED. COMPARISON: None. TECHNIQUE: Single frontal view of the chest FINDINGS: Normal cardiomediastinal contours. Clear lungs. No pleural effusion or pneumothorax. No acute osseous abnormality. IMPRESSION: No acute cardiopulmonary process. Electronically authenticated by: GEGE ANDERSEN Date: 2022-03-20 10:56 Normal [facility] Urinalysis - AUTOMATEDon Appearance (U) cloudy [facility] Other Bilirubin Ql (U) Negative [employer] Other Color (U) yellow [facility] Other Glucose Ql (U) Negative [facility] Other Hemoglobin Ql (U) moderate [employer] Other Ketones Ql (U) trace [facility] Other Leukocyte esterase Test strip Ql (U) trace [facility] Other Nitrite Ql (U) Negative [facility] Other pH (U) 7.0 [pH] [facility] Other Protein Ql (U) trace [facility] Other Specific gravity (U) [Rel density] 1.025 [facility] Other Urobilinogen (U) [Mass/Vol] 0.2 mg/dL [facility] Other Urinalysis - AUTOMATED [facility] Other Urine Cultureon 12-08-2021 Bacteria identified Cx Nom (U) Reason for Exam Dysuria Urine Reason for Exam: Dysuria : Urine ORGANISM: Escherichia coli (O:ESCCOL) [place] Count 10,000 Aerobic JOY Charge (NUC86) ---- SUSCEPTIBILITY --- ORGANISM: O:ESCCOL ANTIBIOTIC INTERPRETATION JOY Amikacin S <16 Ampicillin R >16 Ampicillin/Sulbactam I 1616/8 Aztreonam S <4 Cefazolin S 4 Cefepime S <2 Ceftazidime S <1 Ceftazidime/Avibactam S <8 Ceftriaxone S <1 Ciprofloxacin S <1 Ertapenem S <0.5 Gentamicin S <4 Levofloxacin S <2 Meropenem S <1 Nitrofurantoin S <32 Piperacillin/Tazobact am S <16 Tetracycline S <4 Tigecycline S <2 Tobramycin S <4 Trimethoprim/Sulfamet hoxazole S <2/38 S = SUSCEPTIBLE I = INTERMEDIATE R = RESISTANT BLANK = DATA NOT AVAILABLE, OR DRUG NOT ADVISABLE OR TESTED R* = RESISTANCE DUE TO EXTENDED SPECTRUM BETA-LACTAMASES ESBL = EXTENDED SPECTRUM BETA-LACTAMASE TFG = THYMIDINE-DEPENDENT STRAIN LENORA = BETA-LACTAMASE POSITIVE IB = INDUCIBLE BETA-LACTAMASE. APPEARS IN PLACE OF 'S' WITH SPECIES KNOWN TO POSSESS INDUCIBLE BETA-LACTAMASES. POTENTIALLY THEY MAY BECOME RESISTANT TO ALL B-LACTAM DRUGS. PERFORMED BY: [place] [address] PATHOLOGIST RADIO DIRECTOR YEIMY BENNETT M.D. [facility] Comment on above: Performed By: #### C UU #### [address] Urine Culture 10,000 [facility] Other Urine Culture <16 Susceptible [facility] Other Urine Culture >16 Resistant [facility] Other Urine Culture <4 Susceptible [facility] Other Urine Culture 4 Susceptible [facility] Other Urine Culture <2 Susceptible [facility] Other Urine Culture <1 Susceptible [facility] Other Urine Culture <0.5 Susceptible [facility] Other Urine Culture <32 Susceptible [facility] Other Urine Culture <2/38 Susceptible [employer] [facility] Other Vital Signs Date Time Vital Sign Value Performing Clinician Facility 03-25-2023 08:54-0400 Body temperature 97.34 [degF] Hari CAMPBELL [facility] 03-25-2023 08:54-0400 Diastolic blood pressure 78 mm[Hg] Hari CAMPBELL [facility] 03-25-2023 08:54-0400 Heart rate 84 /min Hari CAMPBELL [facility] 03-25-2023 08:54-0400 Systolic blood pressure 122 mm[Hg] Hari CAMPBELL [facility] 01-31-2023 11:10-0400 Body height 167.64 cm Yin Em Other [facility] Other 01-31-2023 11:10-0400 Body mass index (BMI) [Ratio] 22.27 kg/m2 [facility] Other [facility] Other 01-31-2023 11:10-0400 Body temperature 98.4 [degF] Yin Em Other [facility] Other 01-31-2023 11:10-0400 Body weight 62.6 kg Yin Em Other [facility] Other 01-31-2023 11:10-0400 Diastolic blood pressure 93 mm[Hg] Yin Em Other [facility] Other 01-31-2023 11:10-0400 Respiratory rate 18 /min Yin Em Other [facility] Other 01-31-2023 11:10-0400 SaO2% (BldA) [Mass fraction] 99 % Yin Em Other [facility] Other 01-31-2023 11:10-0400 Systolic blood pressure 141 mm[Hg] Yin Loweley Other [facility] Other 12-08-2021 13:55-0400 Body height 167.64 cm Ro Yodermond Other [facility] Other 12-08-2021 13:55-0400 Body mass index (BMI) [Ratio] 22.27 kg/m2 Ro Yodermond Other [facility] Other 12-08-2021 13:55-0400 Body temperature 97.9 [degF] Ro Yodermond Other [facility] Other 12-08-2021 13:55-0400 Body weight 62.6 kg Ro Yodermond Other [facility] Other 12-08-2021 13:55-0400 Diastolic blood pressure 73 mm[Hg] Ro Linnette Other [facility] Other 12-08-2021 13:55-0400 Respiratory rate 18 /min Ro Linnette Other [facility] Other 12-08-2021 13:55-0400 SaO2% (BldA) [Mass fraction] 99 % Ro Linnette Other [facility] Other 12-08-2021 13:94-0400 Systolic blood pressure 133 mm[Hg] Ro Anglin Other [facility] Other Encounters Encounter Date Encounter Type Care Provider Facility Start: 01-23-2024 ambulatory Harishameka CAMPBELL [facility] ty:[facility] Start: 05-24-2023 End: 05-25-2023 ambulatory Harishameka CAMPBELL Facility:[facility] Start: 05-24-2023 End: 05-24-2023 Patient encounter procedure Hari CAMPBELL [facility] Start: 03-25-2023 End: 03-26-2023 ambulatory Harishameka CAMPBELL Facility:[facility] Start: 03-25-2023 End: 03-25-2023 Patient encounter procedure Hari CAMPBELL [facility] Start: 01-31-2023 End: 01-31-2023 ambulatory Yin Em Other [facility] Other Start: 01-31-2023 Office outpatient visit 15 minutes Yin Em [facility] Start: 04-05-2022 End: 04-06-2022 amb[address] RO BAPTISTE Facility:[facility] Start: 03-23-2022 End: 03-24-2022 ambulatory RO BAPTISTE Facility:[facility] Start: 03-20-2022 End: 03-20-2022 ambulatory NEFTALI OREILLY Facility:[facility] Start: 12-08-2021 End: 12-08-2021 ambulatory Ro Anglin Other [facility] Other Start: 12-08-2021 Office outpatient visit 25 minutes Ro Anglin [facility] Procedures Date Procedure Procedure Detail Performing Clinician Start: 12-08-2021 Piperacillin/tazobactam Ro Anglin Other Start: 02-17-2021 Cystourethroscopy wi th dilation of urethral stricture Hari CAMPBELL Immunizations Immunization Date Immunization Notes Care Provider [facility] 08-07-2019 tetanus toxoid, redu mich diphtheria toxoid, and acellular pertussis vaccine, adsorbed Harishameka CAMPBELL [facility] 10-25-1997 Td(adult) unspecifie d formulation Hari CAMPBELL [facility] 01-16-1997 Hep B, unspecified formulation [address] [facility] 09-07-1996 Hep B, unspecified formulation [address] [facility] 06-25-1996 Hep B, unspecified formulation Hari CAMPBELL [facility] 06-25-1996 measles, mumps and rubella virus vaccine Hari [employer] [facility] 02-20-1991 DTaP, unspecified formulation Hari CAMPBELL [facility] 06-24-1987 DTaP, unspecified formulation [employer] [facility] 06-24-1987 measles, mumps and rubella virus vaccine Hari CAMPBELL [facility] 08-06-1986 DTaP, unspecified formulation Hari CAMPBELL [facility] 04-30-1986 DTaP, unspecified formulation [employer]ari [employer] [facility] 01-29-1986 DTaP, unspecified formulation Hari [employer] [facility] Payers Date Payer Category Payer Medicaid [id number] 2. [id number] 1985 Unknown [id number] [id number] [id number] 1985 Unknown [id number] 2.16.84 [id number] 1985 Unknown [id number] 2.16.84 [id number] 1985 Unknown [id number] 2.16.8 [id number] 1985 Unknown [id number] 2.16.8 [id number] 1985 Unknown [id number] 2.16.8 [id number] 1959 Unknown [id number] 2.1 [id number] Social History Date Type Detail Facility Unknown if ever smoked [facility] Other Sex Assigned At [facility] Start: 03-25-2023 Tobacco smoking status Never s moked tobacco (finding) [facility] Tobacco smoking status Never [facility] Functional Status Date Assessment Result Facility 05-24-2023 Functional Status N/A [facility] 03-25-2023 Functional Status N/A [facility] Clinical Notes 12-08-2021 to 05-24-2023 Note Date & Type Note Facility 05-24-2023 Note [id number] [facility] 05-24-2023 Note Custom Cystoscopy with Urethral Dilation ? Voiding after the procedure: there may be some pain, urethral bleeding, burning, urgency, frequency and blood tinged urine following the procedure. These symptoms usually resolve within 2-5 days. Drink the amount of fluid it takes to keep the urine pink to yellow or clear in color. Drinking enough water and fluids will help to ease any discomfort after your procedure. ? If you are having problems that seem out of the ordinary, please call. ? If unable to contact your physician and you feel it is an emergency, go to the nearest emergency room or call 911 ? Diet ? you may resume your normal diet. ? Activity ? you may resume your normal activities ? Call if you have a fever over 100 degrees [facility] 05-24-2023 [facility] Discharg e instructions Patient Education 05/24/2023 10:49:05 [facility] - Cystoscopy with Urethral Dilation Discharge Instructions (CUSTOM) Cystoscopy with Urethral Dilation Voiding after the procedure: there may be some pain, urethral bleeding, burning, urgency, frequency and blood tinged urine following the procedure. These symptoms usually resolve within 2-5 days. Drink the amount of fluid it takes to keep the urine pink to yellow or clear in color. Drinking enough water and fluids will help to ease any discomfort after your procedure. If you are having problems that seem out of the ordinary, please call. If unable to contact your physician and you feel it is an emergency, go to the nearest emergency room or call 911 Diet you may resume your normal diet. Activity you may resume your normal activities Call if you have a fever over 100 degrees [facility] 03/25/2023 16:03:42 With:Hari CAMPBELL Address: [facility] [address] , [place] [address]- Business (1) When:01/22/2024 10:48:54 [facility] 03-25-2023 [facility] Dis[facility] e instructions Patient Education 03/25/2023 09:26:29 Urethral Dilation Urethral Dilation Urethral dilation is a procedure to stretch open (dilate) the urethra. The urethra is the tube that drains urine from the bladder out of the body. In women, the urethra opens above the vaginal opening. In men, the urethra opens at the tip of the penis. Urethral dilation is usually done to treat narrowing of the urethra (urethral stricture), which can make it difficult to pass urine. Urethral dilation widens the urethra so that you can pass urine normally. Urethral dilation is done through the urethral opening. There are no incisions made during the procedure. Tell a health care provider about: Any allergies you have. All medicines you are taking, including vitamins, herbs, eye drops, creams, and eiwd-qjp-ixronai medicines. Any problems you or family members have had with anesthetic medicines. Any blood disorders you have. Any surgeries you have had. Any medical conditions you have. Whether you are or may be . What are the risks? Generally, this is a safe procedure. However, problems may occur, including: Bleeding. Infection. A return of urethral stricture, which requires repeating the dilation procedure. Damage to the urethra, which may require reconstructive surgery. Allergic reactions to medicines. What happens before the procedure? Medicines Ask your health care provider about: Changing or stopping your regular medicines. This is especially important if you are taking diabetes medicines or blood thinners. Taking medicines such as aspirin and ibuprofen. These medicines can thin your blood. Do not take these medicines unless your health care provider tells you to take them. Taking xpdz-xox-ekvhmfx medicines, vitamins, herbs, and supplements. General instructions Follow instructions from your health care provider about eating or drinking restrictions. Plan to have someone take you home from the hospital or clinic. If you will be going home right after the procedure, plan to have someone with you for 24 hours. Ask your health care provider what steps will be taken to help prevent infection. These may include: ?Washing skin with a germ-killing soap. ?Taking antibiotic medicine. What happens during the procedure? An IV may be inserted into one of your veins. You will be given one or more of the following medicines: ?A local anesthetic to numb your urethral opening. This will be applied as a gel that will also lubricate the urethral opening. ?A sedative to help you relax. A thin tube with a light and camera on the end (cystoscope) will be inserted into your urethra. Your urethra will be rinsed (irrigated) with a germ-free (sterile) water solution. Narrow parts of your urethra will be stretched open using a dilator tool. Your surgeon will start with a very thin dilator, then use wider dilators as needed. A thin tube with an inflatable balloon on the tip may be inserted into your urethra. The balloon may be inflated to help stretch your urethra open. Your urethra will be irrigated. The procedure may vary among health care providers and hospitals. What can I expect after the procedure? After the procedure, it is common to have: ?Burning pain when urinating. ?Blood in your urine. ?A need to urinate frequently. You will be asked to urinate before you leave the hospital or clinic. Your urine flow should improve within a few days. Follow these instructions at home: Medicines Take xqdf-frv-oqhpjqb and prescription medicines only as told by your health care provider. If you were prescribed an antibiotic medicine, take it as told by your health care provider. Do not stop taking the antibiotic even if you start to feel better. Ask your health care provider if the medicine prescribed to you: ?Requires you to avoid driving or using heavy machinery. ?Can cause constipation. You may need to take these actions to prevent or treat constipation: ?Take xbgf-eyk-lzznowq or prescription medicines. ?Eat foods that are high in fiber, such as beans, whole grains, and fresh fruits and vegetables. ?Limit foods that are high in fat and processed sugars, such as fried or sweet foods. General instructions Do not drive for 24 hours if you were given a sedative during your procedure. If you were sent home with a small, lubricated tube (catheter) to help keep your urethra open, follow your health care provider's instructions about how and when to use it. Drink enough fluid to keep your urine pale yellow. Return to your normal activities as told by your health care provider. Ask your health care provider what activities are safe for you. Keep all follow-up visits as told by your health care provider. This is important. Contact a health care provider if: Your urine is cloudy and smells bad. You develop new bleeding when you urinate. You pass blood clots when you urinate. You have pain that does not get better with medicine. You have a fever. You have swelling, bruising, or discoloration of your genital area. This includes the penis, scrotum, and inner thighs for men, and the outer genital organs (vulva) and inner thighs for women. Get help right away if: You develop new bleeding that does not stop. You cannot pass urine. Summary Urethral dilation is a procedure to stretch open (dilate) the urethra. Urethral dilation is usually done to treat narrowing of the urethra (urethral stricture), which can make it difficult to pass urine. Ask your health care provider about changing or stopping your regular medicines before the procedure. After the procedure, it is common to have burning pain when urinating, blood in your urine, and a need to urinate frequently. This information is not intended to replace advice given to you by your health care provider. Make sure you discuss any questions you have with your health care provider. Document Revised: 08/16/2019 Document Reviewed: 08/16/2019 [employer] Patient Education 2022 [employer]. Follow Up Care 10/19/2022 08:49:50 With:IAN WILLAMS, Hari Smith, URL Address: [address] [place] [address]- When: Unknown [facility] 12-08-2021 Evaluation note Encounter Date Diagnosis Assessment Notes November, Dysuria (ICD-10 - R30.0) November, Urinary tract infection, site not specified (ICD-10 - N39.0) Plenty of fluids, get plenty of rest. Take the antibiotic as prescribed until gone. Take the Pyridium as prescribed until gone. Follow-up with your family physician if no improvement in 2 to 3 days. November, Hematuria, unspecified (ICD-10 - R31.9) [employer] Other Evaluation + Plan note Future Appointments Appointment Date:04/05/2023 09:00:00 AM Scheduled Provider: Location:[facility] Appointment Type:Urology CALL PAT FT Appointment Date:04/12/2023 10:15:00 AM Scheduled Provider: Location:[facility] Appointment Type:Urology FT [facility] evaluation + Plan note Future Appointments Appointment Date:01/23/2024 10:15:00 AM Scheduled Provider:Hari CAMPBELL MD Location:[facility] Appointment Type:URO Office Visit [facility] noteNort [employer] Other [facility] general Narrative - Reported* Type Description Date Medical History Anxiety Surgical History C section x 2 Hospitalization History see above [employer] [facility] - [facility] Narrative No data available for this section [facility] progress note No data available for this section [facility] Summary Purpose Family History No Family History Records FoundNo Family History Records Found No data available for this section No Family History Records Found Advance Directives No Advanced Directives Records FoundNo Advanced Directives Records FoundNo Advanced Directives Records Found Additional Source Comments INFORMATION SOURCE (unrecogn ized section and content) DATE CREATED AUTHOR 12/11/2021 [facility] DATE CREATED AUTHOR AUTHOR'S ORGANIZ ATION 04/17/[address] [facility] DATE CREATED AUTHOR AUTHOR'S ORGANIZ ATION 05/29/2023 [facility] REASON FOR VISIT (unrecogniz ed section and content) DYSURIADYSURIA Patient Care team informatio n (unrecognized section and content) Personnel Name: RO BAPTISTE CNP Address: Address: [address] [place] [address] [address] Personnel Name: RO BAPTISTE CNP Address: Address: [address] [place], [place] [address] FOR RECORDS PERTAINING TO PATIENTS WHO ARE OR HAVE BEEN ENROLLED IN A CHEMICAL DEPENDENCY/SUBSTANCEABUSE PROGRAM, SOME INFORMATION MAY BE OMITTED. This clinical summary was aggregated from multiple sources. Caution should be exercised in using it in the provision of clinical care. This summary normalizes information from multiple sources, and as a consequence, information in this document may materially change the coding, format and clinical context of patient data. In addition, data may be omitted in some cases. CLINICAL DECISIONS SHOULD BE BASED ON THE PRIMARY CLINICAL RECORDS. [employer] provides no warranty or guarantee of the accuracy or completeness of information in this document.
[2023-08-15 17:37] LABS: Bilirubin Urine NEGATIVE (NEGATIVE); Blood Urine MODERATE (NEGATIVE); Clarity Urine CLEAR (CLEAR); Color Urine YELLOW (YELLOW); Glucose Urine UA NEGATIVE (NEGATIVE); Ketones Urine NEGATIVE (NEGATIVE); Leukocyte Esterase Urine NEGATIVE (NEGATIVE); Nitrite Urine POSITIVE (NEGATIVE); Protein Urine NEGATIVE (NEG/TRACE); Specific Gravity Urine >=1.030 (1.005-1.025); Urobilinogen Urine 0.2 EU/dL (0.2-1.0)
== END 2023-08-15 17:23 | disposition home or self-care (01) ==
PROVIDERS: PCP Nurse Practitioner Family; Visit Provider Nurse Practitioner Family
DX: R30.0 Dysuria (principal)
CPT/HCPCS: 81003; 87086; 87150; 87186